=== PATIENT | female | born 1940 | race Caucasian/White ===

== ENCOUNTER 2020-02-01 06:57 | Observation (INO) ==
[2020-01-27 10:02] LABS: Appearance,Urine CLEAR; Bacteria,Urine 0 /hpf (0); Bilirubin,Urine NEG (NEG); Color,Urine YELLOW; Culture Indicated,Urine NO; Glucose,Urine (UA) NORM (NEG); Ketones,Urine NEG (NEG); Leukocyte Esterase,Urine 25 /uL (NEG); Mucus,Urine FEW /hpf (0); Nitrate,Urine NEG (NEG); Protein,Urine NEG (NEG); Specific Gravity,Urine 1.013 (1.000-1.035); Urine Blood NEG mg/dL (<0.03); Urine Hyaline Cast 3 /lpf (0-2); Urine RBC 1 /hpf (0-1); Urine Squamous Epithelial Cell < 1 /hpf (0-4); Urine Transitional Epi Cells < 1 /hpf (0-2); Urine WBC 8 /hpf (0-4); Urobilinogen,Urine NORM (NEG)
[2020-01-27 10:05] LABS: Basophils # (Auto) 0.06 K/mcL (0.00-0.30); Eosinophils # (Auto) 0.09 K/mcL (0.00-0.70); Eosinophils % (Auto) 1.5 % (0.0-7.0); Hematocrit 41.1 % (34.1-44.9); Hemoglobin 13.4 g/dL (11.2-15.7); Lymphocytes % (Auto) 32.8 % (15.5-49.0); Mean Cell Volume 95.4 fL (80.0-100.0); Mean Corpuscular HGB Conc 32.6 g/dL (31.0-36.0); Mean Platelet Volume 9.1 fL (7.4-10.4); Monocytes # (Auto) 0.47 K/mcL (0.10-0.90); Monocytes % (Auto) 7.7 % (1.0-12.0); Platelet Count 358 K/mcL (140-440); RBC 4.31 M/mcL (3.59-5.38); Red Cell Distribution Width 13.1 % (11.5-14.5); WBC 6.1 K/mcL (4.50-11.00)
[2020-01-27 10:06] LABS: INR 0.9 (0.9-1.1)
[2020-01-27 10:07] LABS: Blood Urea Nitrogen 16 mg/dl (8-23); Calcium 9.4 mg/dl (8.6-10.4); Carbon Dioxide 27 mmol/L (22-30); Chloride 90 mmol/L (96-108); Glomerular Filtration Rate 60; Glucose 86 mg/dL (70-105)
[~2020-02-01 06:57] MED LIST: PREGABALIN 75 MG CAPSULE PO SCH; ceFAZolin 2 GM in DEXTROSE 5% IN WATER 50 ML IV SCH; oxyCODONE 10 MG TAB.ER.12H PO SCH
[2020-02-01] MEDS ORDERED: IPRATROPIUM/ALBUTEROL 3 ML AMPUL.NEB NEB PRN ×2 (07:00→10:34)
[2020-02-01] MEDS ORDERED: SCOPOLAMINE 1 PATCH PATCH TOPICAL PRN (07:00)
[2020-02-01] MEDS ORDERED: TRANEXAMIC ACID 1,000 MG/10 ML VIAL IV ONE ×2 (09:06→10:46)
[2020-02-01] MEDS ORDERED: MIDAZOLAM 2 MG/2 ML VIAL IV ONE (09:06)
[2020-02-01] MEDS ORDERED: PROPOFOL 200 MG/20 ML VIAL IV ONE (09:06)
[2020-02-01] MEDS ORDERED: LIDOCAINE HCL/PF 100 MG/5 ML SYRINGE IV ONE (09:06)
[2020-02-01] MEDS ORDERED: KETAMINE 100 MG/ML ML IV ONE (09:06)
[2020-02-01] MEDS ORDERED: PHENYLEPHRINE 10 MG/ML VIAL IV ONE (09:06)
[2020-02-01] MEDS ORDERED: DEXAMETHASONE 10 MG/ML VIAL IV ONE (09:06)
[2020-02-01] MEDS ORDERED: GLYCOPYRROLATE 0.2 MG/ML VIAL IV ONE (09:06)
[2020-02-01] MEDS ORDERED: ONDANSETRON 4 MG/2 ML VIAL IV ONE (09:06)
[2020-02-01] MEDS ORDERED: GENTAMICIN SULFATE 800 MG/20 ML VIAL IR ONE (09:43)
[2020-02-01] MEDS ORDERED: KETOROLAC 15 MG/ML VIAL IV ONE (10:34)
[2020-02-01] MEDS ORDERED: MEPERIDINE 25 MG/ML SYRINGE IV PRN (10:34)
[2020-02-01] MEDS ORDERED: ACETAMINOPHEN 900 MG/90 ML BOTTLE IV ONE (10:34)
[2020-02-01] MEDS ORDERED: ONDANSETRON 4 MG/2 ML VIAL IV PRN ×2 (10:34→10:46)
[2020-02-01] MEDS ORDERED: METHOCARBAMOL 1,000 MG/10 ML VIAL IV PRN (10:34)
[2020-02-01] MEDS ORDERED: fentaNYL 100 MCG/2 ML VIAL IV PRN (10:34)
[2020-02-01] MEDS ORDERED: LACTATED RINGERS 1,000 ML IV SCH (10:45)
--- NOTE | 2020-02-01 10:45 | Brief Operative Note ---
Date of procedure: 02/01/20 Pre-op diagnosis: left hip osteoarthritis Post-op diagnosis: same Procedure: left total hip arthroplasty Grafts/Implants: Yes Anesthesia: spinal Complications: none Surgeon: Max Barcenas [employer] Curer: Ender Gomez Estimated blood loss (cc): 150 Specimens Removed/Pathology: none sent Condition: stable Disposition: PACU
[2020-02-01] MEDS ORDERED: BISACODYL 10 MG SUPP.RECT PR PRN (10:46)
[2020-02-01] MEDS ORDERED: POLYETHYLENE GLYCOL 3350 17 GM PACKET PO PRN (10:46)
[2020-02-01] MEDS ORDERED: morphine 4 MG/ML VIAL IV PRN (10:46)
[2020-02-01] MEDS ORDERED: FLEETS ADULT ENEMA PR PRN (10:46)
[2020-02-01] MEDS ORDERED: MAGNESIUM HYDROXIDE 30 ML ORAL.SUSP PO PRN (10:46)
[2020-02-01] MEDS ORDERED: KETOROLAC 15 MG/ML VIAL IV PRN (10:46)
[2020-02-01] MEDS ORDERED: ONDANSETRON 4 MG ODT TABLET SL PRN (10:46)
[2020-02-01] MEDS ORDERED: METHOCARBAMOL 750 MG TABLET PO PRN (10:46)
--- NOTE | 2020-02-01 10:46 | Discharge Summary ---
Ortho Discharge - [facility] - Patient Instructions Diet: Regular Diet Activity: ambulate with assistive device, weight bearing as tolerated Total Hip Protocol: Follow activity instructions as provided by Physical Therapy. Dressing Care: May shower in 2 days - Follow Up Plan Follow Up Appointments: Ender Gomez PA-C [Physician Contact Lens Assistant] - 02/16/20 11:00 am Disposition: Home, Self-Care Prognosis: Good Rehab Potential: Good I certify that the patient requires SNF services: No Overall status at discharge: patient is progressing back to baseline
--- NOTE | 2020-02-01 11:26 | XRay Report ---
INDICATION: Post-Op Total Hip TECHNIQUE: AP pelvis. AP and crosstable lateral left hip COMPARISON: None. FINDINGS: Status post left total hip arthroplasty. Alignment is anatomic. There is postsurgical soft tissue and intra-articular gas. Previous open reduction and internal fixation of right intertrochanteric hip fracture with gamma nail configuration IMPRESSION: Status post left total hip arthroplasty Interpreted and Authenticated by: Max Srinivasan 02/01/20
--- NOTE | 2020-02-01 11:27 | XRay Report ---
INDICATION: left total hip arthroplasty TECHNIQUE: Intraoperative fluoroscopy and spot films utilized by Dr. Phillips. 0.5 minutes fluoroscopy utilized. 3.58 mGy exposure IMPRESSION: Intraoperative fluoroscopy and spot films. Left total hip arthroplasty Interpreted and Authenticated by: Max Srinivasan 02/01/20
--- NOTE | 2020-02-01 11:44 | Operative Note ---
DATE OF OPERATION: 02/01/2020 PREOPERATIVE DIAGNOSIS: Degenerative joint disease, left hip. POSTOPERATIVE DIAGNOSIS: Degenerative joint disease, left hip. PROCEDURE: Left total hip arthroplasty. SURGEON: Fernando Barcenas M.D. ESCALATOR ATTENDANT SURGEON: Ender Gomez PA-C. The PA's assistance was required for the safe and efficient completion of the entire case. This provider's expertise and technical skill were required throughout the case. The PA assisted with preoperative coordination, intraoperative retraction, wound closure, dressing and splint application, as well as postoperative documentation and care coordination. ANESTHESIA: Spinal with LMA assist. ESTIMATED BLOOD LOSS: 150 mL. COMPLICATIONS: None. SPECIMENS REMOVED: None. DRAINS: None. DISPOSITION: To PACU in stable condition. IMPLANTS: DePuy Worley Gription acetabular shell 50 mm diameter; DePuy Bardolph Hole Eliminator PS; DePuy Worley Altrx polyethylene acetabular liner, neutral 32 x 50; DePuy Biolox delta ceramic femoral head +1, 32 mm diameter; DePuy femoral stem Actis Duofix hip prosthesis, cementless, size 7 standard collar. INDICATIONS: The patient has had a longstanding history of worsening pain in the hip that has failed conservative treatment. Radiographs have confirmed advanced degenerative joint disease. After a long discussion about treatment options, the patient elected to proceed with a hip arthroplasty. The risks and benefits were discussed with the patient in detail including, but not limited to, the risks of anesthesia, problems with the heart or lungs related to anesthesia, infection, compromise or injury to the nerves and blood vessels, deep venous thrombosis, pulmonary embolism, pneumonia, continued pain after surgery, worsening pain or symptoms after surgery, swelling, loss of motion, instability, leg length discrepancy, and need for repeat surgery. DESCRIPTION OF PROCEDURE: The patient was seen in pre-anesthesia waiting room where all questions were answered and the correct side and site were identified and marked. The patient was then brought to the operating room and administered the anesthetic and given pre-operative antibiotics. A timeout was then called. The patient was placed on the [place] table with all prominences well-padded in the standard fashion. Anesthesia gave the patient 1 gram of tranexamic acid via an intravenous route. C-arm was brought in to confirm our position, and we got radiographs of the pelvis and acetabulum. A standard anterior approach was made. We dissected through the skin and subcutaneous tissue and mobile window was created medially and laterally. We placed the retractor. We visualized the fascia and split the tensor fasciae latae in line with the incision. We dissected up underneath the tensor fasciae latae, placed retractors, coagulated the lateral femoral circumflex vessels, and then was able to split underneath the rectus and reflected head of the rectus. Cobra retractors were placed along the neck. I then performed a capsulotomy and placed a tag suture for the capsular repair. We put Cobra retractors along the neck and visualized the neck. I then brought C-arm in to confirm our neck cut. I then cut the neck to the standard templated length and removed the head. The leg was then externally rotated and applied some mild traction. I placed retractors to visualize the acetabulum. I removed the labrum to visualize the acetabulum and some of the bone spurs. I then sequentially reamed up to a size 49 with good excision of bone. I used the C-arm and JointPoint to confirm our position in about 45 degrees of abduction and 25 degrees of anteversion. We then removed the reaming. We thoroughly irrigated with Irrisept and saline. We impacted the final Worley Gription acetabular shell 50 mm diameter at the templated version. This was again confirmed with JointPoint and C-arm. I then placed the Bardolph Hole Eliminator and the Worley Altrx polyethylene acetabular liner, neutral 32 x 50. At this point, externally rotated the hip and brought it down into adduction. I placed retractors and did a capsulotomy and visualized the femur. We then sequentially prepared the femur and broached up to a size 7. I used a trial size 7 with a 50 mm head standard collar +1, 32 mm diameter head. This was reduced. It was stable on range of motion and JointPoint. We had restored her leg length and offset. The trials were removed. We placed a final femoral stem Actis Duofix hip prosthesis size 7 standard collar with the 32 mm diameter Biolox delta ceramic femoral head +1. The hip was reduced. Again, radiographs and JointPoint confirmed that we had restored the leg length and offset, and the hardware was in good position. We thoroughly irrigated. We closed the capsule with #2 FiberWire. The tensor fasciae latae fascia was closed with 0 Vicryl. Subcutaneous layer was closed in layers with Vicryl, Monocryl, and then Dermabond for the skin. She was dressed with Xeroform, 4 x 4, ABD, and Medipore tape. She was then extubated, transferred to a stretcher, and taken to PACU in stable condition. Marilynn Job ID: [id number] Doc ID: [id number] Fernando Barcenas MD
[2020-02-01] MEDS: LACTATED RINGERS 1,000 ML IV SCH ×2 (13:02→21:56)
[2020-02-01] MEDS: HYDROcodone/APAP 10/325MG TABLET PO PRN ×3 (13:44→20:40)
[2020-02-01] MEDS: 0.9 % SODIUM CHLORIDE 10 ML SYRINGE IV SCH ×2 (13:45→20:35)
[2020-02-01] MEDS: ceFAZolin 1 GM VIAL IV SCH (17:57)
[2020-02-01] MEDS: BENZOCAINE/MENTHOL 1 LOZENGE PO PRN (20:35)
[2020-02-01] MEDS: ASPIRIN 81 MG TAB.CHEW PO SCH (20:35)
[2020-02-01] MEDS: DOCUSATE SODIUM 100 MG CAPSULE PO SCH (20:35)
[2020-02-01] MEDS: SENNOSIDES 1 TABLET PO SCH (20:35)
[2020-02-02] MEDS: BENZOCAINE/MENTHOL 1 LOZENGE PO PRN ×2 (00:20→19:55)
[2020-02-02] MEDS: HYDROcodone/APAP 10/325MG TABLET PO PRN ×5 (00:21→19:55)
[2020-02-02] MEDS: ceFAZolin 1 GM VIAL IV SCH (00:22)
[2020-02-02] MEDS: LEVOTHYROXINE SODIUM 112 MCG TABLET PO SCH ×2 (05:17→06:30)
[2020-02-02] MEDS: LACTATED RINGERS 1,000 ML IV SCH ×3 (05:20→19:08)
[2020-02-02] MEDS: 0.9 % SODIUM CHLORIDE 10 ML SYRINGE IV SCH ×4 (05:20→21:50)
--- NOTE | 2020-02-02 07:02 | Orthopedic Progress Note ---
Subjective Patient information: Note initiated : 02/02/20 at 7:00 am Service Date, if different from initiated Date: [] Patient: Grace Moreno 79 y/o F admitted on for Left Total Hip Arthroplasty Anterior. Chief Complaint: [] Interval history: doing well. painful and hard to sleep but has ambulated Objective Vital signs: Vital Signs Temp Pulse Resp BP Pulse Ox 02/02/20 04:19 97.9 F 77 16 112/52 97 02/02/20 00:08 97.7 F 77 16 150/62 99 02/01/20 20:05 98.6 F 68 16 126/71 97 02/01/20 16:30 97.4 F 66 16 117/64 99 02/01/20 15:00 61 108/64 99 02/01/20 14:00 58 L 132/64 99 02/01/20 13:30 69 137/72 100 02/01/20 13:00 67 128/58 98 02/01/20 12:45 59 L 134/71 100 02/01/20 12:30 57 L 113/63 99 02/01/20 12:15 97.4 F 63 12 115/58 100 02/01/20 12:02 98.1 F 60 12 108/48 99 02/01/20 11:47 64 11 L 100/48 98 02/01/20 11:32 68 10 L 110/45 98 02/01/20 11:17 97.0 F 65 15 99/47 98 02/01/20 11:12 71 12 96/73 100 02/01/20 11:07 69 10 L 93/52 100 02/01/20 11:02 97.4 F 71 17 123/63 100 02/01/20 07:34 97.7 F 72 18 124/67 98 Intake and Output 02/01/20 02/02/20 02/02/20 21:59 05:59 13:59 Intake Total 1840 250 Output Total 200 850 Balance 1640 -600 Intake: IV 1000 Lactated Ringers 1,000 ml @ 125 1000 mls/hr IV .Q8H [facility] Rx#: [id number] Oral 840 250 Output: Void Amount 200 850 Other: Meal Dinner Percent of Meal Consumed 100% Feeding Ability Independent Urine Appearance Clear Urine Color Pale Weight 139 lb 8 oz Intake & Output: Intake & Output 0602/02/20 02/02/20 21:59 05:59 13:59 Intake Total 1840 250 Output Total 200 850 Balance 1640 -600 Weight 139 lb 8 oz Intake: IV 1000 Lactated Ringers 1,000 ml @ 125 1000 mls/hr IV .Q8H DI Rx#: [id number] Oral 840 250 Output: Void Amount 200 850 Other: Meal Dinner Percent of Meal Consumed 100% Feeding Ability Independent Urine Appearance Clear Urine Color Pale Incision: Yes healing Incision clean and dry: Yes Dressing: Yes clean, Yes dry, Yes intact Weight bearing status: full Neurological exam IM: Yes abnormal gait, Yes alert, Yes oriented X3, Yes motor sensory intact, Yes neurovascular intact Extremities exam IM: No calf tenderness, Yes Foot pink and warm, Yes neurovascular intact - Labs CBC & BMP: 01/26/20 16:04 01/26/20 16:04 Labs: Orthopedic Labs 01/26/20 16:04 PT 13.0 INR 0.9 02/02/20 01/26/20 05:25 16:04 Hgb Pending 13.4 Hct Pending 41.1 Assessment and Plan (1) Hip osteoarthritis pod 1 s/p emerson wbat pain control dvt prophylaxis d/c planning Status: Acute
[2020-02-02 07:06] LABS: Hemoglobin 10.4 g/dL (11.2-15.7)
[2020-02-02] MEDS ORDERED: TRIAMTERENE HCTZ PO SCH (09:00)
[2020-02-02] MEDS: DOCUSATE SODIUM 100 MG CAPSULE PO SCH ×2 (09:40→19:55)
[2020-02-02] MEDS: ASPIRIN 81 MG TAB.CHEW PO SCH ×2 (09:40→19:55)
[2020-02-02] MEDS: TRIAMTERENE/HYDROCHLOROTHIAZID 1 CAP CAPSULE PO SCH (09:41)
[2020-02-02] MEDS: SENNOSIDES 1 TABLET PO SCH (19:55)
[2020-02-03] MEDS: 0.9 % SODIUM CHLORIDE 10 ML SYRINGE IV SCH (04:12)
[2020-02-03 06:36] LABS: Hematocrit 29.8 % (34.1-44.9); Hemoglobin 10.2 g/dL (11.2-15.7)
[2020-02-03] MEDS: LEVOTHYROXINE SODIUM 112 MCG TABLET PO SCH (06:59)
--- NOTE | 2020-02-03 07:04 | Orthopedic Progress Note ---
Subjective Patient information: Note initiated : 02/03/20 at 7:03 am Service Date, if different from initiated Date: [] Patient: Grace Moreno 79 y/o F admitted on 02/02/20 for Left Total Hip Arthroplasty Anterior. Chief Complaint: [] Interval history: difficulty yesterday with dizziness, slow to progress and mobilize with pt Objective Vital signs: Vital Signs Temp Pulse Pulse Pulse Pulse Resp BP 02/03/20 04:05 98.6 F 99 H 14 02/02/20 23:45 98.2 F 90 16 02/02/20 18:40 98.8 F 83 16 02/02/20 15:45 98.9 F 77 18 02/02/20 12:00 98.0 F 73 18 02/02/20 09:24 78 75 88 118/62 BP BP BP Pulse Ox 02/03/20 04:05 147/71 94 02/02/20 23:45 133/66 95 02/02/20 18:40 117/57 97 02/02/20 15:45 111/52 97 02/02/20 12:00 118/55 97 02/02/20 09:24 123/57 107/51 Intake and Output 02/02/20 02/03/20 02/03/20 21:59 05:59 13:59 Intake Total 1270 650 Output Total 500 802 75 Balance 770 -152 -75 Intake: IV 50 Ancef 2 gm In Dextrose 5% in 50 Water 50 ml @ 100 mls/hr IV PREOP DI Rx#:[id number] Oral 1220 650 Output: Void Amount 500 800 75 # of times incontinent of urine 2 Other: Meal Dinner Percent of Meal Consumed 100% Feeding Ability Assist with Tray Set Up Urine Appearance Clear Clear Clear Urine Color Pale Pale Pale # Voids 1 1 Weight 139 lb 14.4 oz Intake & Output: Intake & Output 02/02/20 02/03/20 02/03/20 21:59 05:59 13:59 Intake Total 1270 650 Output Total 500 802 75 Balance 770 -152 -75 Weight 139 lb 14.4 oz Intake: IV 50 Ancef 2 gm In Dextrose 5% in 50 Water 50 ml @ 100 mls/hr IV PREOP DI Rx#:[id number] Oral 1220 650 Output: Void Amount 500 800 75 # of times incontinent of urine 2 Other: Meal Dinner Percent of Meal Consumed 100% Feeding Ability Assist with Tray Set Up Urine Appearance Clear Clear Clear Urine Color Pale Pale Pale # Voids 1 1 Incision: Yes healing Incision clean and dry: Yes Dressing: Yes clean, Yes dry, Yes intact Weight bearing status: full Neurological exam IM: Yes abnormal gait, Yes alert, Yes oriented X3, Yes motor sensory intact, Yes neurovascular intact Extremities exam IM: No calf tenderness, Yes Foot pink and warm, Yes neurovascular intact - Labs CBC & BMP: 02/03/20 05:25 01/26/20 16:04 Labs: Orthopedic Labs 01/26/20 16:04 PT 13.0 INR 0.9 02/03/20 02/02/20 01/26/20 05:25 05:25 16:04 Hgb 10.2 L 10.4 L 13.4 Hct 29.8 L 31.0 L 41.1 Assessment and Plan (1) Hip osteoarthritis pod 2 s/p emerson wbat pain control dvt prophylaxis d/c planning - slow to mobilize and dizzy, feeling a little better this am. will try stairs and increase activity with pt this am Status: Acute
[2020-02-03] MEDS: TRIAMTERENE/HYDROCHLOROTHIAZID 1 CAP CAPSULE PO SCH (09:00)
[2020-02-03] MEDS: DOCUSATE SODIUM 100 MG CAPSULE PO SCH (09:00)
[2020-02-03] MEDS: HYDROcodone/APAP 10/325MG TABLET PO PRN ×2 (09:00→12:48)
[2020-02-03] MEDS: ASPIRIN 81 MG TAB.CHEW PO SCH (09:01)
== END 2020-02-03 13:35 | disposition home or self-care (01) ==
LOC: MEDSUR 06:57 → MEDSUROUT 06:57 → MEDSUR 07:01
PROVIDERS: ADMIT Orthopaedic Surgery Sports Medicine; ATTEND Orthopaedic Surgery Sports Medicine